=== PATIENT | male | born 1955 | race Asian ===

== ENCOUNTER 2018-06-11 16:03 | Emergency (ER) | payer OTHER ==
[~2018-06-11] VITALS: Ht 175.3 cm; Wt 60.4 kg
[2018-06-11] MEDS ORDERED: ONDANSETRON HCL 4MG/2ML INJ IV STA (16:23)
[2018-06-11] MEDS ORDERED: SODIUM CHLORIDE 0.9% 1,000 ML IV ONE (16:23)
[2018-06-11 16:49] LABS: EOSINOPHILS % 4.2 % (0.0-5.0); HEMATOCRIT. 44.4 % (42.0-52.0); HEMOGLOBIN. 14.5 g/dL (14.0-18.0); LYMPHOCYTES % 40.8 % (20.0-50.0); MEAN CORPUSCULAR HEMOGLOBIN 26.4 pg (28.0-32.0); MEAN CORPUSCULAR VOLUME 80.9 fL (80.0-94.0); MEAN PLATELET VOLUME 8.6 fl (7.4-10.4); MONOCYTES % 14.5 % (2.0-8.0); NEUTROPHILS % 39.5 % (40.0-76.0); PLATELET 167 x1000/uL (130-400); RED BLOOD CELL COUNT 5.49 mill/uL (4.7-6.1); RED CELL DISTRIBUTION WIDTH 15.1 % (11.6-14.6)
[2018-06-11 16:57] LABS: CHLORIDE 111 mEq/L (98-107)
[2018-06-11 17:01] LABS: ETHANOL BLOOD < 10 mg/dL
[2018-06-11 17:03] LABS: LDL CHOLESTEROL 70 mg/dL (5-100)
[2018-06-11 17:05] LABS: CREATINE KINASE 59 IU/L (39-308)
[2018-06-11 17:30] LABS: INR 1.1; PROTHROMBIN TIME 11.4 sec (9.1-11.1)
[2018-06-11] MEDS ORDERED: ASPIRIN 325MG TABLET PO ONE (17:30)
[2018-06-11] MEDS ORDERED: ASPIRIN 300MG SUPP PR ONE (18:00)
[2018-06-11] MEDS ORDERED: ALTEPLASE IV ONE (18:30)
[2018-06-11] MEDS ORDERED: CONTAINER EMPTY IV ONE (18:30)
[2018-06-11] MEDS ORDERED: ALTEPLASE 100MG/VIAL IV ONE (18:30)
[2018-06-11] MEDS ORDERED: ALTEPLASE IV STA (18:30)
[2018-06-11] MEDS ORDERED: ALTEPLASE 100MG/VIAL IV STA (18:30)
[2018-06-11] MEDS ORDERED: LORAZEPAM 2MG/ML CPJ IV ONE (20:15)
[2018-06-11 20:40] LABS: CLARITY URINE CLEAR (CLEAR); COLOR URINE YELLOW (YELLOW); KETONES URINE NEGATIVE (NEGATIVE); LEUKOCYTE ESTERASE URINE NEGATIVE (NEGATIVE); NITRITE URINE NEGATIVE (NEGATIVE); OCCULT BLOOD URINE NEGATIVE (NEGATIVE); PROTEIN URINE NEGATIVE (NEGATIVE); SPECIFIC GRAVITY URINE 1.035 (1.005-1.030); UROBILINOGEN URINE 0.2 E.U./dL (0.2-1.0)
[2018-06-11 20:53] LABS: *AMPHETAMINES SCREEN URINE NEGATIVE (NEGATIVE); *BARBITURATES SCREEN URINE NEGATIVE (NEGATIVE); *BENZODIAZEPINES SCREEN URINE NEGATIVE (NEGATIVE); *COCAINE SCREEN URINE NEGATIVE (NEGATIVE); CANNABINOID URINE SCREEN NEGATIVE (NEGATIVE); METHADONE URINE SCREEN NEGATIVE (NEGATIVE); OPIATES URINE SCREEN NEGATIVE (NEGATIVE); PHENCYCLIDINE URINE SCREEN NEGATIVE (NEGATIVE)
[2018-06-11] MEDS ORDERED: IOHEXOL-350 100 ML BOTTLE ONE (21:21)
[2018-06-11] MEDS ORDERED: *NO ASPIRIN X 24 HOURS XX SCH (21:45)
[2018-06-11 22:32] VITALS: BP 119/63
== END 2018-06-11 23:00 | disposition short-term general hospital (02) ==
LOC: ER 16:03 → CANBEDREQ 06-12 01:19
DX: I63.9 Cerebral infarction, unspecified (principal); G93.49 Other encephalopathy; E03.9 Hypothyroidism, unspecified
CPT/HCPCS: 36415; 37195; 70450; 70496; 70498; 71045; 80053; 80305; 80320; 81003; 82550; 83605; 83721; 83880; 84484; 85025; 85610; 93005; 96361; 96374; 99291; J2060; J2405; J2997; J7030; Q9967; Z7610; J7060; G0480